=== PATIENT | female | born 1945 | race Caucasian/White ===

== ENCOUNTER 2016-05-03 02:27 | Emergency (ER) | payer OTHER ==
[~2016-05-03] VITALS: Ht 165.1 cm; Wt 95.5 kg
[~2016-05-03 02:27] MED LIST: ALBU8I INH; COZA50TA PO; LEVO100T4 PO; REDCAP2 PO; VITA100T15 PO; VITA400C28 PO; [UNRECOGNIZED DRUG - CODE] PO
[2016-05-03 02:38] VITALS: BP 138/86; PULSE 96; RESP 18; TEMP 99.2; O2SAT 97
[2016-05-03 02:55] VITALS: O2SAT 96
--- NOTE | 2016-05-03 03:14 | PD ---
HPI Chief Complaint: Abdominal Pain Time Seen by Provider: 03:04 Travel History International Travel<30 days: No Contact w/Intl Traveler<30days: No Traveled to known affect area: No History of Present Illness HPI 70-year-old female presents to the emergency department by private transportation for evaluation of abdominal pain. Patient has noted since this evening around 6 PM; intermittent stab-type abdominal pain 7/10 intensity when present. Patient has not noticed any fever chills nausea vomiting respiratory illness symptoms chest pain shortness of breath upper abdominal pain flank pain dysuria frequency urgency and no report of vaginal bleeding or discharge. Patient does have hypothyroidism hypertension dyslipidemia and diabetes. Patient has noted some labial erythema and pruritus. Patient has had vaginal yeast infection in the past and states symptoms are similar. Patient has not recently been on antibiotic. Patient has had previous cholecystectomy and C- section 2 in the past. Presently pain is 0/10 in intensity. Patient also reports previous colonoscopy up partially 5 years ago that was reportedly normal. Patient denies other concerns or complaints. PFSH Past Medical History Narrative Medical Hypertension dyslipidemia diabetes fibromyalgia hypothyroidism kidney stones; cholecystectomy eye surgery; no tobacco use; nursing notes reviewed Cancer: No Cardiovascular Problems: Yes High Cholesterol: Yes Diabetes: Yes Diminished Hearing: No Endocrine: No Glaucoma: Yes Genitourinary: No Hypertension: Yes Immune Disorder: No Implanted Vascular Access Dvce: No Musculoskeletal: Yes (FIBROMYALGIA) Neurologic: No Psychiatric: No Reproductive: No Respiratory: No Immunizations Current: Yes Thyroid Disease: Yes (GOITER 1993) Past Surgical History Abdominal Surgery: Yes (CHOLESYSECTOMY) Section: Yes Cholecystectomy: Yes Eye Surgery: Yes (glaucoma) Other Surgery: Yes Social History Alcohol Use: Yes (VERY RARE) Tobacco Use: No Substance Use: No Allergies-Medications (Allergen,Severity, Reaction): Coded Allergies: No Known Allergies (Unverified , 05/03/16) Reported Meds & Prescriptions Reported Meds & Active Scripts Active Phenergan (Promethazine HCl) 25 Mg Tab 25 Mg PO Q6H PRN Lortab (Hydrocodone-Acetaminophen) 5-325 Mg Tab 1 Tab PO Q6H PRN Flagyl (Metronidazole) 500 Mg Tab 500 Mg PO QID 7 Days Cipro (Ciprofloxacin HCl) 500 Mg Tab 500 Mg PO BID 7 Days Diflucan (Fluconazole) 150 Mg Tab 150 Mg PO ONCE Reported Vitamin B-12 (Cyanocobalamin) 100 Mcg Lozg 100 Mcg BUCCAL DAILY Vitamin D (Cholecalciferol) 400 Unit/Ml Drops 400 Units PO DAILY Aspirin 81 Mg Tabdr 81 Mg PO DAILY Niacin 500 Mg Tab 500 Mg PO DAILY Vitamin E 200 Unit Cap 200 Units PO DAILY Synthroid (Levothyroxine Sodium) 25 Mcg Tab 12.5 Mcg PO DAILY Losartan (Losartan Potassium) 100 Mg Tab 100 Mg PO DAILY Proair Hfa 8.5 GM Inh (Albuterol Sulfate) 90 Mcg/Act Aer 2 Puff INH Q4-6H PRN 108 mcg/actuation Review of Systems Except as stated in HPI: all other systems reviewed are Neg General / Constitutional: No: Fever, Chills HENT: No: Congestion Cardiovascular: No: Chest Pain or Discomfort Respiratory: No: Cough, Shortness of Breath Gastrointestinal: Positive: Abdominal Pain, No: Nausea, Diarrhea Genitourinary: No: Urgency, Frequency, Dysuria, Hematuria, Flank Pain, Discharge, Vaginal Bleeding Musculoskeletal: No: Myalgias, Arthralgias Skin: Positive Rash Neurologic: No: Weakness Psychiatric: No: Anxiety Hematologic/Lymphatic: No: Lymph Node Enlargement Physical Exam Narrative GENERAL: Well-developed well-nourished female in no acute distress no respiratory distress SKIN: Warm and dry. Mild erythema and macerated tissue overlying the remote C- section scar in the pannus fold. HEAD: Normocephalic. EYES: No scleral icterus. No injection or drainage. NECK: Supple, trachea midline. No JVD or lymphadenopathy. CARDIOVASCULAR: Regular rate and rhythm without murmurs, gallops, or rubs. RESPIRATORY: Breath sounds equal bilaterally. No accessory muscle use. GASTROINTESTINAL: Abdomen soft, reproducible suprapubic tenderness to direct palpation without guarding or rebound, nondistended. Pelvic: External labial erythema with mild excoriation changes. MUSCULOSKELETAL: No cyanosis, or edema. BACK: Nontender without obvious deformity. No CVA tenderness. Data Data Last Documented VS Vital Signs Date Time Temp Pulse Resp B/P Pulse Ox O2 Delivery O2 Flow Rate FiO2 05/03/16 05:40 86 16 136/77 97 Room Air 05/03/16 04:40 98.2 Orders Complete Blood Count With Diff (05/03/16 03:04) Comprehensive Metabolic Panel (05/03/16 03:04) Lipase (05/03/16 03:04) Urinalysis - C+S If Indicated (05/03/16 03:04) Iv Access Insert/Monitor (05/03/16 03:04) Oximetry (05/03/16 03:04) Sodium Chloride 0.9% Flush (Ns Flush) (05/03/16 03:15) Urine Culture (05/03/16 02:50) Ct Abd/Pel W/O Iv Contrast (05/03/16 ) Ceftriaxone Inj (Rocephin Inj) (05/03/16 04:45) Ketorolac Inj (Toradol Inj) (05/03/16 04:45) Sodium Chlorid 0.9% 500 Ml Inj (Ns 500 M (05/03/16 04:45) Metronidazole (Flagyl) (05/03/16 05:45) Labs Laboratory Tests Test 05/03/16 05/03/16 02:50 02:55 Urine Collection Type CLEAN CATCH Urine Color YELLOW Urine Turbidity SLIGHT Urine pH 6.5 Urine Specific [place] 1.015 Urine Protein NEG mg/dL Urine Glucose (UA) NEG mg/dL Urine Ketones NEG mg/dL Urine Occult Blood NEG Urine Nitrite NEG Urine Bilirubin NEG Urine Leukocyte Esterase SMALL Urine RBC 0-3 /hpf Urine WBC 9-14 /hpf Urine Squamous Epithelial 0-5 /hpf Cells Urine Amorphous Sediment SMALL Urine Bacteria OCC /hpf Urine Mucus OCC /lpf Microscopic Urinalysis Comment CULTURE INDICATED White Blood Count 10.5 TH/MM3 Red Blood Count 4.42 MIL/MM3 Hemoglobin 14.2 GM/DL Hematocrit 40.5 % Mean Corpuscular Volume 91.6 FL Mean Corpuscular Hemoglobin 32.2 PG Mean Corpuscular Hemoglobin 35.2 % Concent Red Cell Distribution Width 12.4 % Platelet Count 265 TH/MM3 Mean Platelet Volume 7.9 FL Neutrophils (%) (Auto) 70.2 % Lymphocytes (%) (Auto) 19.7 % Monocytes (%) (Auto) 5.9 % Eosinophils (%) (Auto) 2.0 % Basophils (%) (Auto) 2.2 % Neutrophils # (Auto) 7.4 TH/MM3 Lymphocytes # (Auto) 2.1 TH/MM3 Monocytes # (Auto) 0.6 TH/MM3 Eosinophils # (Auto) 0.2 TH/MM3 Basophils # (Auto) 0.2 TH/MM3 CBC Comment AUTO DIFF Differential Comment AUTO DIFF CONFIRMED Platelet Estimate NORMAL Platelet Morphology Comment NORMAL Red Cell Morphology Comment NORMAL Sodium Level 136 MEQ/L Potassium Level 4.1 MEQ/L Chloride Level 100 MEQ/L Carbon Dioxide Level 29.8 MEQ/L Anion Gap 6 MEQ/L Blood Urea Nitrogen 9 MG/DL Creatinine 0.66 MG/DL Estimat Glomerular Filtration 89 ML/MIN Rate Random Glucose 128 MG/DL Calcium Level 8.6 MG/DL Total Bilirubin 0.7 MG/DL Aspartate Amino Transf 29 U/L (AST/SGOT) Alanine Aminotransferase 26 U/L (ALT/SGPT) Alkaline Phosphatase 87 U/L Total Protein 7.4 GM/DL Albumin 3.4 GM/DL Lipase 365 U/L [facility] Medical Decision Making Medical Screen Exam Complete: Yes Emergency Medical Condition: Yes Medical Record Reviewed: Yes Interpretation(s) CT abd/pel: CONCLUSION: 1. There are two 5 mm stones in the mid right ureter causing some hydronephrosis the right collecting system. 2. There is evidence of mild diverticulitis involving the sigmoid colon. Buck Phipps MD on May 03, 2016 at 4:33 Board Certified Radiologist. This report was verified electronically. Laboratory Tests Test 05/03/16 05/03/16 02:50 02:55 Urine Collection Type CLEAN CATCH Urine Color YELLOW Urine Turbidity SLIGHT Urine pH 6.5 Urine Specific [place] 1.015 Urine Protein NEG mg/dL Urine Glucose (UA) NEG mg/dL Urine Ketones NEG mg/dL Urine Occult Blood NEG Urine Nitrite NEG Urine Bilirubin NEG Urine Leukocyte Esterase SMALL Urine RBC 0-3 /hpf Urine WBC 9-14 /hpf Urine Squamous Epithelial 0-5 /hpf Cells Urine Amorphous Sediment SMALL Urine Bacteria OCC /hpf Urine Mucus OCC /lpf Microscopic Urinalysis Comment CULTURE INDICATED White Blood Count 10.5 TH/MM3 Red Blood Count 4.42 MIL/MM3 Hemoglobin 14.2 GM/DL Hematocrit 40.5 % Mean Corpuscular Volume 91.6 FL Mean Corpuscular Hemoglobin 32.2 PG Mean Corpuscular Hemoglobin 35.2 % Concent Red Cell Distribution Width 12.4 % Platelet Count 265 TH/MM3 Mean Platelet Volume 7.9 FL Neutrophils (%) (Auto) 70.2 % Lymphocytes (%) (Auto) 19.7 % Monocytes (%) (Auto) 5.9 % Eosinophils (%) (Auto) 2.0 % Basophils (%) (Auto) 2.2 % Neutrophils # (Auto) 7.4 TH/MM3 Lymphocytes # (Auto) 2.1 TH/MM3 Monocytes # (Auto) 0.6 TH/MM3 Eosinophils # (Auto) 0.2 TH/MM3 Basophils # (Auto) 0.2 TH/MM3 CBC Comment AUTO DIFF Differential Comment AUTO DIFF CONFIRMED Platelet Estimate NORMAL Platelet Morphology Comment NORMAL Red Cell Morphology Comment NORMAL Sodium Level 136 MEQ/L Potassium Level 4.1 MEQ/L Chloride Level 100 MEQ/L Carbon Dioxide Level 29.8 MEQ/L Anion Gap 6 MEQ/L Blood Urea Nitrogen 9 MG/DL Creatinine 0.66 MG/DL Estimat Glomerular Filtration 89 ML/MIN Rate Random Glucose 128 MG/DL Calcium Level 8.6 MG/DL Total Bilirubin 0.7 MG/DL Aspartate Amino Transf 29 U/L (AST/SGOT) Alanine Aminotransferase 26 U/L (ALT/SGPT) Alkaline Phosphatase 87 U/L Total Protein 7.4 GM/DL Albumin 3.4 GM/DL Lipase 365 U/L Differential Diagnosis Abdominal pain, diverticulitis, UTI, candidiasis, also to consider colitis appendicitis Narrative Course IV access obtained specimens collected and sent for resulting; patient offered pain medication however at this time pain is controlled and declines any administration of medications Lab values found to be grossly within normal range except for abnormal urinalysis. Patient administered first dose of antibiotic in the emergency department. Due to colicky type nature of pain up to 7/10 in intensity patient sent for a CT scan noncontrast kidney stone protocol patient does disclose at this time previous history of kidney stone in the remote past. CT abdomen and pelvis kidney stone protocol identifies x 2 5mm stones in the right mid ureter with mild hydronephrosis and mild diverticulitis Patient received additional antibiotic and Toradol for pelvic pressure complaint Patient reports she feels well and is stable for outpatient management and follow-up with primary care provider and urologist; encouraged to contact arch cushion skiving machine operator urologist Dr Hubbard. Sepsis Criteria SIRS Criteria (2 or more): Heart rate over 90 Diagnosis Primary Impression: Hydronephrosis of right kidney Additional Impressions: UTI (urinary tract infection) Qualified Code: N30.00 - Acute cystitis without hematuria Diverticulitis Qualified Code: K57.92 - Diverticulitis of intestine without perforation or abscess without bleeding, unspecified part of intestinal tract Referrals: Family Practice Physician call for appointment Urologist 1 day call office in AM to make appointment with arch cushion skiving machine operator urologist, Dr Anthony Hubbard Patient Instructions: General Instructions Additional Instructions: Increase fluid hydration Strain urine Take medication as prescribed as needed for pain/symptom relief; use narcotics with caution as may impair judgment, delay reaction time, increased risk for fall, or cause constipation (lortab) Complete course of antibiotic as prescribed for diverticulitis and bladder/ urinary tract infection ( flagyl and cipro) Take antifungal medication as prescribed (diflucan) Use medication as prescribed as needed for nausea and/or vomiting (phenergan) Follow-up with primary care provider Follow-up with urologist, Dr. Hubbadr, call office in a.m. to schedule follow-up appointment Return to the emergency department for any concerns or change in condition May take as tolerated ibuprofen/Advil/Motrin every 6-8 hours as needed for pain associated with inflammation or for fever 100.4 days Fahrenheit or greater May take as tolerated acetaminophen/Tylenol as often as every 4 hours as needed for pain or pain or for fever 100.4F or greater Med/Other Pt SpecificInfo: Prescription(s) given Scripts Promethazine (Phenergan)25 Mg Tab25 Mg PO Q6H PRN (Nausea/Vomiting) #10 TAB Ref 0 Prov:Lesli Lozano MD 05/03/16 Hydrocodone-Acetaminophen (Lortab)5-325 Mg Tab1 Tab PO Q6H PRN (PAIN) #10 TAB Ref 0 Prov:Lesli Lozano MD 05/03/16 Metronidazole (Flagyl)500 Mg [id number] Mg PO QID 7 Days Ref 0 Prov:Lesli Lozano MD 05/03/16 Ciprofloxacin (Cipro)500 Mg [id number] Mg PO BID 7 Days Ref 0 Prov:Lesli Lozano MD 05/03/16 Fluconazole (Diflucan)150 Mg [id number] Mg PO ONCE #1 TAB Ref 1 Prov:Lesli Lozano MD 05/03/16 Disposition: 01 DISCHARGE HOME Condition: Stable Lesli Lozano MD May 03, 2016 03:14
[2016-05-03] MEDS ORDERED: SODIUM CHLORIDE 0.9% FLUSH 5 ML FLUSH IVF PRN (03:15)
[2016-05-03 03:18] LABS: AUTOMATED NEUTROPHIL # 7.4 TH/MM3 (1.8-7.7); BASOPHIL # 0.2 TH/MM3 (0-0.2); BASOPHIL % 2.2 % (0.0-2.0); EOSINOPHIL # 0.2 TH/MM3 (0-0.4); HEMATOCRIT 40.5 % (35.0-46.0); LYMPH % 19.7 % (9.0-44.0); LYMPHOCYTE # 2.1 TH/MM3 (1.0-4.8); MEAN CELL VOLUME 91.6 FL (80.0-100.0); MEAN CORPUSCULAR HEMOGLOBIN 32.2 PG (27.0-34.0); MEAN CORPUSCULAR HGB CONC 35.2 % (32.0-36.0); MONO % 5.9 % (0.0-8.0); NEUT % 70.2 % (16.0-70.0); PLATELET COUNT 265 TH/MM3 (150-450); RED BLOOD COUNT 4.42 MIL/MM3 (4.00-5.30); RED CELL DISTRIBUTION WIDTH 12.4 % (11.6-17.2); WHITE BLOOD COUNT 10.5 TH/MM3 (4.0-11.0)
[2016-05-03 03:19] LABS: BLOOD, URINE NEG (NEG); GLUCOSE,URINE NEG (NEG); KETONE, URINE NEG (NEG); NITRITE,URINE NEG (NEG); PH, URINE 6.5 (5.0-8.5)
[2016-05-03 03:25] LABS: HEMO FLAGS AUTO DIFF
[2016-05-03 03:29] LABS: METHOD OF COLLECTION CLEAN CATCH; URINE COLOR YELLOW (YELLW/STRAW)
[2016-05-03 03:30] LABS: MUCUS URINE OCC /lpf (OCC)
[2016-05-03] MEDS ORDERED: ALBUAER3 INH (03:30)
[2016-05-03 03:31] LABS: RBC, URINE 0-3 /hpf (0-3); SQUAMOUS EPITHELIAL CELL URINE 0-5 /hpf (0-5)
[2016-05-03] MEDS ORDERED: LOSA100T PO (03:31)
[2016-05-03 03:32] LABS: CHLORIDE 100 MEQ/L (98-107); POTASSIUM 4.1 MEQ/L (3.5-5.1); SODIUM (NA) 136 MEQ/L (136-145)
[2016-05-03 03:32] LABS: BACTERIA, URINE OCC /hpf; COMMENT (UR) CULTURE INDICATED; CULTURE IF INDICATED CULTURE INDICATED
[2016-05-03] MEDS ORDERED: SYNT25TA PO (03:34)
[2016-05-03] MEDS ORDERED: VITA200C3 PO (03:35)
[2016-05-03 03:36] LABS: ANION GAP 6 MEQ/L (5-15); BICARBONATE 29.8 MEQ/L (21.0-32.0); BLOOD UREA NITROGEN 9 MG/DL (7-18)
[2016-05-03] MEDS ORDERED: NIAC500T5 PO (03:36)
[2016-05-03] MEDS ORDERED: ASPI1TAB69 PO (03:36)
[2016-05-03] MEDS ORDERED: CHOL400D2 PO (03:37)
[2016-05-03] MEDS ORDERED: VITA100L BUCCAL (03:38)
[2016-05-03 03:39] LABS: ALT (GPT) 26 U/L (10-53); AST (GOT) 29 U/L (15-37); GLOMERULAR FILTRATION RATE 89 ML/MIN (>89)
[2016-05-03 03:40] VITALS: BP 133/76; PULSE 84; RESP 16; O2SAT 96
[2016-05-03 03:40] LABS: PLATELET ESTIMATE SMEAR NORMAL (NORMAL); PLATELET MORPHOLOGY NORMAL (NORMAL); SCAN/DIFF AUTO DIFF CONFIRMED; TOTAL BILIRUBIN ADULT 0.7 MG/DL (0.2-1.0)
[2016-05-03 03:41] LABS: ALKALINE PHOSPHATASE 87 U/L (45-117)
[2016-05-03 04:40] VITALS: BP 140/69; PULSE 84; RESP 18; TEMP 98.2; O2SAT 98
--- NOTE | 2016-05-03 04:41 | RADHPO ---
EXAM DATE/TIME: 05/03/2016 04:11 [facility] COMPARISON: No previous studies available for comparison. INDICATIONS : Bilateral lower abdominal pain. ORAL CONTRAST: No oral contrast ingested. RADIATION DOSE: 20.98 CTDIvol (mGy) MEDICAL HISTORY : Diabetes mellitus type 2. Hypertension. SURGICAL HISTORY : Cholecystectomy. section. ENCOUNTER: Initial ACUITY: 1 day PAIN SCALE: 8/10 LOCATION: Bilateral lower quadrant TECHNIQUE: Volumetric scanning of the abdomen and pelvis was performed. Using automated exposure control and ad justment of the mA and/or kV according to patient size, radiation dose was kept as low as reasonably achievable to obtain optimal diagnostic quality images. The lack of IV contrast limits the diagnosis for certain organ pathology. FINDINGS: LOWER LUNGS: The visualized lower lungs are clear. LIVER: Homogeneous density without lesion. There is no dilation of the biliary tree. No gallbladder surgic ally removed.. SPLEEN: Normal size without lesion. Granulomas in the spleen. PANCREAS: Within normal limits. KIDNEYS: There is mild hydronephrosis of the right kidney. There are two 5 mm stones in the mid right ureter. No hydronephrosis of the left kidney. No calcified renal stones in the kidneys. The left ureter is no ndilated. ADRENAL GLANDS: Within normal limits. VASCULAR: There is no aortic aneurysm. BOWEL/MESENTERY: The bowel gas pattern is within normal limits. There is mild inflammatory changes adjacent to the sig moid colon in the left lower quadrant characteristic for diverticulitis. A few small scattered divert icula are seen along the sigmoid colon. There is stool throughout the colon. No free fluid or free ai r is demonstrated. REPRODUCTIVE: Within normal limits. INGUINAL: There is no lymphadenopathy or hernia. MUSCULOSKELETAL: Within normal limits for patient age. CONCLUSION: 1. There are two 5 mm stones in the mid right ureter causing some hydronephrosis the right collecting system. 2. There is evidence of mild diverticulitis involving the sigmoid colon. Buck Phipps MD on May 03, 2016 at 4:33 Board Certified Radiologist. This report was verified electronically.
[2016-05-03] MEDS ORDERED: SODIUM CHLORID 0.9% 500 ML INJ 500 ML IV ONE (04:45)
[2016-05-03] MEDS ORDERED: KETOROLAC TROMETHAMINE 30 MG/ML (IVP) VIAL IV PUSH ONE (04:45)
[2016-05-03] MEDS ORDERED: cefTRIAXone INJ 1,000 MG in SODIUM CHLORIDE 0.9% INJ 100 ML IV ONE (04:45)
[2016-05-03] MEDS ORDERED: HYDR-3533 PO (05:00)
[2016-05-03] MEDS ORDERED: TAMS5CAP PO (05:00)
[2016-05-03] MEDS ORDERED: CIPR-9 PO (05:00)
[2016-05-03] MEDS ORDERED: PROM25TA5 PO (05:00)
[2016-05-03] MEDS ORDERED: DIFL150T PO (05:00)
[2016-05-03] MEDS ORDERED: METR-1 PO (05:00)
[2016-05-03 05:40] VITALS: BP 136/77; PULSE 86; RESP 16; O2SAT 97
[2016-05-03] MEDS ORDERED: metroNIDAZOLE 500 MG TAB PO ONE (05:45)
== END 2016-05-03 06:13 | disposition home or self-care (01) ==
LOC: PHED 02:27
DX: K57.92 Diverticulitis of intestine, part unspecified, without perforation or abscess without bleeding (principal); N39.0 Urinary tract infection, site not specified; N13.2 Hydronephrosis with renal and ureteral calculous obstruction; Z87.442 Personal history of urinary calculi; M79.7 Fibromyalgia; I10 Essential (primary) hypertension; E11.9 Type 2 diabetes mellitus without complications; E03.9 Hypothyroidism, unspecified; E78.00 Pure hypercholesterolemia, unspecified; B96.89 Other specified bacterial agents as the cause of diseases classified elsewhere
CPT/HCPCS: 74176; 80053; 81001; 83690; 85025; 87086; 96365; 96375; 99284; J0696; J1885; J7040